=== PATIENT | female | born 1970 | race Caucasian/White ===

== ENCOUNTER 2016-08-28 10:33 | Emergency (ER) | payer BC ==
--- NOTE | 2016-08-28 11:10 | UC ---
Throat Pain/Nasal Negro HPI - HPI Summary HPI Summary: SORE THROAT X 3 DAYS + NASAL CONGESTION , COUGH , BODY ACHES, FEVER, CHILLS - History of Current Complaint Chief Complaint: UCGeneralIllness Stated Complaint: FLU SYMPTOMS Time Seen by Provider: 08/28/16 10:56 Hx Obtained From: Patient Hx Last Menstrual Period: 2 weeks ago Onset/Duration: Gradual Onset, Lasting Days - 3, Still Present Severity: Moderate Cough: Nonproductive Associated Signs & Symptoms: Positive: Nasal Discharge, Fever. Negative: Dysphagia, Sinus Discomfort, Rash - Allergies/Home Medications Allergies/Adverse Reactions: Allergies Allergy/AdvReac Type Severity Reaction Status Date / Time No Known Allergies Allergy Verified 08/28/16 10:56 Home Medications: Home Medications Ascorbic Acid TAB* [Vitamin C TAB*] 500 mg PO DAILY 08/28/16 [History Confirmed 08/28/16] PMH/Surg Hx/FS Hx/Imm Hx Endocrine History Of: Denies: Diabetes Cardiovascular History Of: Denies: Hypertension, Pacemaker/ICD Respiratory History Of: Denies: Asthma GI/ History Of: Denies: Renal Disease Psychological History Of: Reports: Anxiety - Surgical History Surgical History: Yes Surgery Procedure, Year, and Place: rt breast lumpectomy benign approx 1998, cyst on right breast 2013. FALLOPIAN TUBE AND OVARY REMOVED 06/2015 - Family History Known Family History: Negative: Diabetes - Social History Alcohol Use: None Substance Use Type: None Smoking Status (MU): Never Smoked Tobacco Type: Cigarettes - Immunization History Most Recent Influenza Vaccination: never Most Recent Tetanus Shot: unknown Most Recent Pneumonia Vaccination: never Review of Systems Constitutional: Fever, Chills, Fatigue Skin: Negative Eyes: Negative ENT: Sore Throat, Nasal Discharge Respiratory: Cough Cardiovascular: Negative Gastrointestinal: Negative Genitourinary: Negative Motor: Negative All Other Systems Reviewed And Are Negative: Yes Physical Exam Triage Information Reviewed: Yes Appearance: Well-Appearing, No Pain Distress, Well-Nourished Vital Signs: Initial Vital Signs Temp 101.3 F 08/28/16 10:58 Pulse 105 08/28/16 10:58 Resp 18 08/28/16 10:58 BP 96/63 08/28/16 10:58 Pulse Ox 95 08/28/16 10:58 Vital Signs Reviewed: Yes Eye Exam: Normal Eyes: Positive: Conjunctiva Clear ENT: Positive: Normal ENT inspection, Hearing grossly normal, Pharyngeal erythema, Nasal congestion, Nasal drainage, TMs normal Neck: Positive: Supple, Nontender, No Lymphadenopathy Respiratory: Positive: Chest non-tender, Lungs clear, Normal breath sounds Cardiovascular: Positive: Tachycardia Abdominal Exam: Normal Skin Exam: Normal Throat Pain/Nasal Course/Dx - Differential Dx/Diagnosis Provider Diagnoses: INFLUENZA Discharge - Discharge Plan Condition: Stable Disposition: HOME Prescriptions: Oseltamivir Phosphate [Tamiflu] 75 mg PO BID #10 cap Patient Education Materials: Influenza (ED) Referrals: Amparo Gaxiola MD [Primary Care Provider] - If Needed
[2016-08-28 11:37] VITALS: BP 96/57
== END 2016-08-28 11:38 | disposition home or self-care (01) ==
LOC: UCCORT 10:33
DX: J11.1 Influenza due to unidentified influenza virus with other respiratory manifestations (principal)
CPT/HCPCS: 87502; 99212; G0463

== ENCOUNTER 2019-04-11 09:21 | Emergency (ER) | payer BC, OTHER ==
--- OUTSIDE RECORDS SUMMARY | 2019-04-11 10:27 | XMS REPORT | Continuity of Care Document ---
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/15/2019 Cyst of right ovary Ceasar Gannon MD Onset: 02/21/2019 Social History Type Date Description Comments Sex Unknown Cigarette Use Current Cigarette Smoker 1-5 Cigarettes Daily ETOH Use Rarely consumes alcohol Recreational Drug Use Denies Drug Use Tobacco Use Start: Unknown Patient is a current smoker, smokes every day Smoking Status Reviewed: 02/27/19 Patient is a current smoker, smokes every day Exercise Type/Frequency Exercises regularly Seat Belt/Car Seat Always uses seat belt Allergies, Adverse Reactions, Alerts Description No Known Drug Allergies Medications Active Medications SIG Qnty Indications Ordering Provider Date Vitamin D Unknown Дмитрий-Mag Complex Unknown [id number]-[id number]-Unit Tablets Vitamin B 12 Unknown 100mcg Lozenges Lorazepam take 1 tablet by Unknown 1mg Tablets mouth 1 to 2 times per day as needed for anxiety Immunizations Description No Information Available Vital Signs Date Vital Result Comment 02/27/2019 2:47pm BP Systolic 100 mmHg BP Diastolic 70 mmHg Height 63.25 inches 5'3.25" Weight 117.00 lb BMI (Body Mass Index) 20.6 kg/m2 Last Menstrual Period 7532736 3 Parity 2 01/18/2019 3:22pm BP Systolic 120 mmHg BP Diastolic 62 mmHg Height 63.25 inches 5'3.25" Weight 117.00 lb BMI (Body Mass Index) 20.6 kg/m2 Last Menstrual Period [id number] 3 Parity 2 Results Test Date Facility Test Result H/L Range Note Laboratory test 12/07/2018 [facility] SEE RESULT 1 finding [place] [address] BELOW [phone] 1 SEE RESULT BELOW Name: BEV MCNULTY : [address]: Sarahi Brady Acct: [id number] Unit: [id number] AGE: 48 Location: [facility] Re12/07/18 SEX: F Status: REG REF SPEC: [id number] VERN: 12/07/18-[address] [facility] [address]: Sarahi Brady REQ: [id number] RECD: 12/07/18 STATUS: SOUT _ ORDERED: TP IMAGE ANALYS, HPV/Thin Prep COMMENTS: [id number] Negative for Intraepithelial lesion or Malignancy Date Time Test Result Flag (u) Normal Range 12/07/18 1026 HPV RNA Negative Negative The high-risk HPV types detected by the assay include: 16, 18, 31, 33, 35, 39, 45, 51, 52, 56, 58, 59, 66, and 68. A. Ectocervical/Endocervical Specimen Adequacy: Satisfactory of evaluation Transformation zone component identified Patient Information: HPV: High risk HPV RNA testing regardless of pap results. Actual Specimen Date: 12/07/18 LMP If Unknown: Last Menstrual Period Not Given. ?: N Post Menopausal?: N Hysterectomy?: N Previous Abnormal Pap Smears?:N Signed by and Reported on: TRANG Aldana(ASCP) [id number] This Pap test was evaluated with the assistance of the [employer] Test Imaging System. Due to cytologic findings at the boom storage microscope, comprehensive manual rescreening by a Truck Dock Material Mover may be required. The Pap Smear is a screening test designed to aid in the detection of premalignant and malignant conditions of the uterine cervix. It is not a diagnostic procedure and should not be used as the sole means of detecting cervical cancer. Both false- positive and false- negative reports do occur. Depending on your risk status, a Pap smear should be obtained and evaluated every 1-3 years. END OF REPORT DEPARTMENT OF PATHOLOGY, [address] [place] [address] Jaaynt Hensley M.D. Director [facility] # [id number] Procedures Date Code Description Status 02/27/2019 69276 Echography Transvaginal Completed 01/18/2019 21997 Echography Transvaginal Completed 10/06/2018 05616040 Mammogram Completed Medical Devices Description No Information Available Encounters Type Date Location Provider Dx Diagnosis Office Visit 02/27/2019 [facility] Ceasar Gannon MD N83.201 Unspecified ovarian 3:00p cyst, right side Office Visit 01/18/2019 [facility] Ceasar Gannon MD N93.9 Abnormal uterine and 3:30p vaginal bleeding, unspecified N83.201 Unspecified ovarian cyst, right side Office Visit 12/07/2018 10:00a [facility] Sarahi Srivastava 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.419 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) (routine) w/o abn findings N93.9 Abnormal uterine and vaginal bleeding, unspecified Assessments Date Code Description Provider 02/27/2019 N83.201 Unspecified ovarian cyst, right side Ceasar Gannon MD 02/27/2019 N83.201 Unspecified ovarian cyst, right side Ultrasounds 01/18/2019 N93.9 Abnormal uterine and vaginal bleeding, Ceasar Gannon MD unspecified 01/18/2019 N93.9 Abnormal uterine and vaginal bleeding, Ultrasounds unspecified 01/18/2019 N83.201 Unspecified ovarian cyst, right side Ceasar Gannon MD 12/07/2018 Z01.419 Encounter for gynecological examination ROSA Jarrell (general) (routine) 12/07/2018 N93.9 Abnormal uterine and vaginal bleeding, ZAKI Jarrell unspecified Plan of Treatment 08/06/2015 - Zackary Denise M.D.Z09 Encounter for follow-up examination after completed treatment for conditions other than malignant neoplasmComments:rec Annual with pap 6 months, eval sooner prn Functional Status Description No Information Available Mental Status Description No Information Available Referrals Description No Information Available
[2019-04-11 10:38] VITALS: BP 116/73
--- NOTE | 2019-04-11 10:53 | UC ---
Throat Pain/Nasal Negro HPI - HPI Summary HPI Summary: 48 y/o female presents to the urgent care c/o sore throat and low subjective grade fever for the past 4 days. Pt is concerned w/ strep and requests test. Pt also states B/L ear pain and plugged. Pt denies nasal congestion or cough. Pain w/ swallowing is mild 4/10, but worse when she wakes up. She has not taken anything to alleviate symptoms. Pt denies wheezing, dizziness, PICKETT, SOB, chest pain,abdominal pain, N/V/D. - History of Current Complaint Chief Complaint: UCGeneralIllness Stated Complaint: ST Time Seen by Provider: 04/11/19 10:51 Hx Obtained From: Patient Hx Last Menstrual Period: 2 weeks ago Onset/Duration: Gradual Onset, Lasting Days - 4 days, Still Present, Worse Since - in the morning when she wakes up Severity: Moderate Pain Intensity: 4 Pain Scale Used: 0-10 Numeric Cough: None Associated Signs & Symptoms: Positive: Fever - subjective low grade fever at home. Negative: Dysphagia, Wheezing, Sinus Discomfort, Nasal Discharge - Epiglottits Risk Factors Epiglottis Risk Factors: Negative - Allergies/Home Medications Allergies/Adverse Reactions: Allergies Allergy/AdvReac Type Severity Reaction Status Date / Time No Known Allergies Allergy Verified 04/11/19 10:34 Home Medications: Home Medications NK [No Home Medications Reported] 04/11/19 [History Confirmed 04/11/19] PMH/Surg Hx/FS Hx/Imm Hx Previously Healthy: Yes - Pt denies PMHX - Surgical History Surgical History: Yes Surgery Procedure, Year, and Place: Left Fallopian Tube and Left Oopherectomy, 2016, [place]; Right Breast Cystectomy, 2013; Benign Right Breast Lumpectomy, ~ 1998 - Family History Known Family History: Negative: Diabetes - Social History Occupation: Employed Full-time Lives: With Family Alcohol Use: None Substance Use Type: None Smoking Status (MU): Never Smoked Tobacco Type: Cigarettes - Immunization History Most Recent Influenza Vaccination: never Most Recent Tetanus Shot: unknown Most Recent Pneumonia Vaccination: never Review of Systems All Other Systems Reviewed And Are Negative: Yes Constitutional: Positive: Fever - subjective low grade fever at home, Other - decrease appetite Skin: Positive: Negative Eyes: Positive: Negative ENT: Positive: Sore Throat, Ear Ache - B/L ear pain and plugged Respiratory: Positive: Negative Cardiovascular: Positive: Negative Gastrointestinal: Positive: Negative Genitourinary: Positive: Negative Motor: Positive: Negative Neurovascular: Positive: Negative Musculoskeletal: Positive: Negative Neurological: Positive: Headache - mild Psychological: Positive: Negative Is Patient Immunocompromised?: No Physical Exam - Summary Physical Exam Summary: VITAL SIGNS: Reviewed. GENERAL: Patient is a well developed and nourished male who is sitting comfortably in the examining table. Patient is not in any acute respiratory distress. HEAD AND FACE: No signs of trauma. No ecchymosis, hematomas or skull depressions. No sinus tenderness. EYES: PERRLA, EOMI x 2, No injected conjunctiva, no nystagmus. No photophobia. EARS: Hearing grossly intact. Ear canals and tympanic membranes are within normal limits. MOUTH: Positive pharynx with mild erythema, no exudates, No B/L tonsillar enlargement , no exudate. Uvula in midline. edematous nasal mucosa w/no nasal discharge, clear PND NECK: Supple, trachea is midline, Positive anterior cervical lymphadenopathy, no JVD, no carotid bruit, no c-spine tenderness, neck with full ROM. No meningeal signs, no Kernig's or brudzinskis signs. CHEST: Symmetric, no tenderness at palpation LUNGS: Clear to auscultation bilaterally. No wheezing or crackles. CVS: Regular rate and rhythm, S1 and S2 present, no murmurs or gallops appreciated. ABDOMEN: Soft, non-tender. No signs of distention. No rebound no guarding, and no masses palpated. Bowel sounds are normal. EXTREMITIES: FROM in all major joints, no edema, no cyanosis or clubbing. NEURO: Alert and oriented x 3. No acute neurological deficits. Pt follows commands. SKIN: Dry and warm Triage Information Reviewed: Yes Vital Signs: Initial Vital Signs Temp 98.7 F 04/11/19 10:33 Pulse 76 04/11/19 10:33 Resp 16 04/11/19 10:33 BP 116/73 04/11/19 10:33 Pulse Ox 100 04/11/19 10:33 Throat Pain/Nasal Course/Dx - Course Course Of Treatment: 48 y/o female presents to the urgent care c/o sore throat and low subjective grade fever for the past 4 days. Pt is concerned w/ strep and requests test. Pt also states B/L ear pain and plugged. Pt denies nasal congestion or cough. Pain w/ swallowing is mild 4/10, but worse when she wakes up. She has not taken anything to alleviate symptoms. Pt denies wheezing, dizziness, PICKETT, SOB, chest pain,abdominal pain, N/V/D. Hx obtained. Rapid strep ordered, result: negative. Viral pharyngitis.Pt advised to take ibuprofen PO or Tylenol to alleviates symptoms of pain and swelling. Advised on hand washing to avoid spreading. Pt advised to rest, eat well and avoid strenuous exercise. If symptoms do not improve or worsen advised to return to the urgent care or f/u with her PCP in 3 days for further evaluation and treatment. Pt understood and agreed - Differential Dx/Diagnosis Differential Diagnosis/HQI/PQRI: Influenza, Laryngitis, Otitis Media, Pharyngitis, Sinusitis, URI Provider Diagnosis: Acute viral pharyngitis Discharge ED - Sign-Out/Discharge Documenting (check all that apply): Patient Departure - d/c home All imaging exams completed and their final reports reviewed: No Studies - Discharge Plan Condition: Stable Disposition: HOME Patient Education Materials: Pharyngitis (ED) Referrals: Amparo Gaxiola MD [Primary Care Provider] - 3 Days Additional Instructions: 1-Please take ibuprofen PO q6-8hrs prn as instructed after meals to alleviate pain and swelling. Increase fluid intake, eat well, rest and avoid strenuous exercise 2-If symptoms do not improve or worsen please return to the urgent care or f/u with your PCP in 3 days for further evaluation and treatment. 3- Rapid strep: negative - Billing Disposition and Condition Condition: STABLE Disposition: Home
== END 2019-04-11 11:09 | disposition home or self-care (01) ==
LOC: UCCORT 09:21
DX: J02.9 Acute pharyngitis, unspecified (principal); H92.03 Otalgia, bilateral
CPT/HCPCS: 87651; 99211; G0463

== ENCOUNTER 2019-08-14 16:04 | Emergency (ER) | payer BC ==
--- NOTE | 2019-08-14 17:13 | UC ---
Skin Complaint HPI - HPI Summary HPI Summary: 49-year-old female with ringworm to the left side of her back. She and her recently had had a kitten which has had ringworm over the past couple of months. The also has ringworm today. - History of Current Complaint Time Seen by Provider: 08/14/19 16:58 Stated Complaint: RASH/SKIN COMPLAINT Hx Obtained From: Patient Hx Last Menstrual Period: 2 weeks ago ?: No Onset/Duration: Gradual Onset Skin Exposure Onset/Duration: Days Ago Timing: Constant Onset Severity: Mild Current Severity: Mild Location: Other - Left-side of back Character: Redness Aggravating Factor(s): Nothing Alleviating Factor(s): Nothing Associated Signs & Symptoms: Positive: Negative Related History: Possible Reaction to: Animal - Allergy/Home Medications Allergies/Adverse Reactions: Allergies Allergy/AdvReac Type Severity Reaction Status Date / Time No Known Allergies Allergy Verified 08/14/19 17:12 Home Medications: Home Medications NK [No Home Medications Reported] 04/11/19 [History Confirmed 08/14/19] PMH/Surg Hx/FS Hx/Imm Hx Previously Healthy: Yes - Surgical History Surgical History: Yes Surgery Procedure, Year, and Place: Left Fallopian Tube and Left Oopherectomy, 2016, [place]; Right Breast Cystectomy, 2014; Benign Right Breast Lumpectomy, ~ 1998 - Family History Known Family History: Negative: Diabetes - Social History Lives: With Family Alcohol Use: None Substance Use Type: None Smoking Status (MU): Never Smoked Tobacco Type: Cigarettes - Immunization History Most Recent Influenza Vaccination: never Most Recent Tetanus Shot: unknown Most Recent Pneumonia Vaccination: never Review of Systems All Other Systems Reviewed And Are Negative: Yes Skin: Positive: Rash - Ringworm type rash to left-side of back. Is Patient Immunocompromised?: No Physical Exam Triage Information Reviewed: Yes Appearance: Well-Appearing, No Pain Distress, Well-Nourished Vital Signs Reviewed: Yes Musculoskeletal Exam: Normal Neurological Exam: Normal Psychological Exam: Normal Skin: Positive: Rashes - Patient has a typical circular ringworm type rash to left side of lower back measuring approximately 1.0 cm in diameter. Course/Dx - Course Course Of Treatment: Patient is comfortable here. - Diagnoses Provider Diagnosis: Ringworm Discharge ED - Sign-Out/Discharge Documenting (check all that apply): Patient Departure All imaging exams completed and their final reports reviewed: No Studies - Discharge Plan Condition: Good Disposition: HOME Patient Education Materials: Tinea Corporis (ED) Referrals: Amparo Gaxiola MD [Primary Care Provider] - Additional Instructions: Avoid skin to skin contact. Apply Lotrimin ointment which can be found in the foot section of the pharmacy and apply it 3 times a day until cleared and then one extra week. Follow-up with your primary care provider if no improvement in 5-7 days. - Billing Disposition and Condition Condition: GOOD Disposition: Home
[2019-08-14 17:15] VITALS: BP 116/82
== END 2019-08-14 17:28 | disposition home or self-care (01) ==
LOC: UCCORT 16:04
DX: B35.8 Other dermatophytoses (principal)
CPT/HCPCS: 99211; G0463